=== PATIENT | female | born 1965 | race African-American/Black ===

== ENCOUNTER 2016-09-20 10:54 | Emergency (ER) | payer MEDICAID ==
[~2016-09-20] VITALS: Ht 172.7 cm; Wt 95.0 kg
[2016-09-20 11:42] VITALS: BP 92/66
[2016-09-20] MEDS ORDERED: KETOROLAC 60MG/2ML VIAL IM ONE (11:45)
== END 2016-09-20 12:56 | disposition home or self-care (01) ==
LOC: ER 11:26
DX: M79.641 Pain in right hand (principal); M32.9 Systemic lupus erythematosus, unspecified; F17.200 Nicotine dependence, unspecified, uncomplicated; Z90.710 Acquired absence of both cervix and uterus
CPT/HCPCS: 73130; 96372; 99284; J1885